=== PATIENT | male | born 1995 | race Caucasian/White ===

== ENCOUNTER → 2022-10-17 | Outpatient (CLI) | payer OTHER, SELFPAY ==
--- NOTE | 2022-10-17 14:30 | VDUE_ITS ---
Reason For Study: pain Right Proximal Left Proximal Right jugular vein is spontaneous, widely Left jugular vein is spontaneous, widely patent, phasic, with no intraluminal patent, phasic, with no intraluminal echogenicity noted. echogenicity noted. Right subclavian vein is spontaneous, widely Left subclavian vein is spontaneous, widely patent, phasic, with no intraluminal patent, phasic, with no intraluminal echogenicity noted. echogenicity noted. Right Lower Arm Left Arm Right radial vein is compressible. Left axillary vein is spontaneous, patent, Right ulnar vein is compressible. phasic, competent, compressible and Right Arm demonstrates augmentation. Right axillary vein is spontaneous, patent, Left brachial vein is compressible. phasic, competent, compressible and Left cephalic vein is compressible. demonstrates augmentation. Left basilic vein is compressible. Right brachial vein is compressible. Left Lower Arm Right cephalic vein is compressible. Left radial vein is compressible. Right basilic vein is compressible. Left ulnar vein is compressible. VL/Venous Duplex US - Gerardo Extrem Interpretation Summary Deep veins of the bilateral upper extremities are patent and compressible segme ntally. There is no evidence of deep vein thrombosis. Superficial veins of the bilateral upper extremities are patent and compressibl e segmentally. There is no evidence of superficial vein thrombosis Ordering Physician: Rica Crum Performed By: Rob Tijerina RVT ???
== END | disposition home or self-care (01) ==
PROVIDERS: Referring Provider Physician Assistant; Visit Provider Physician Assistant
DX: M79.603 Pain in arm, unspecified (principal); G54.0 Brachial plexus disorders
CPT/HCPCS: 93970

== ENCOUNTER → 2022-11-09 | Outpatient (CLI) | payer OTHER, SELFPAY ==
--- NOTE | 2022-11-09 14:06 | ART_ITS ---
Reason For Study: Thoracic Outlet Syndrome Procedure A bilateral upper extremity continuous wave Doppler with analog waveform analysis and segmental pressures. Left Segmental Pressures Left brachial= 133mmHg. Left radial= 174mmHg. Left ulnar= 167mmHg. Left digit = 153 mmHg. The left brachial waveforms are triphasic. The left radial waveforms are triphasic. The left ulnar waveforms are triphasic. Right Segmental Pressures Right brachial= 143mmHg. Right radial= 179mmHg. Right ulnar= 173mmHg. Right digit = 146 mmHg. The right brachial waveforms are triphasic. The right radial waveforms are triphasic. The right ulnar waveforms are triphasic. Indices The right wrist-brachial index is 1.25. The right digital-brachial index is 1.02. The left wrist- brachial index is 1.22. The left digital-brachial index is 1.07. VL/Upper Extremity Arterial Study Interpretation Summary Right wrist-brachial index 1.25, normal. PVR and digit waveforms normal at rest . Significantly diminished right upper extremity waveforms with arms in symptomat ic position. Left wrist-brachial index 1.22, normal. PVR and digit waveforms normal at rest. Significantly diminished left upper extremity waveforms with arms in symptomati c position. Ordering Physician: Rica Crum Referring Physician: N/A Performed By: Jack Aparicio RVT
== END | disposition home or self-care (01) ==
LOC: CVS 14:05
PROVIDERS: Referring Provider Physician Assistant; Visit Provider Physician Assistant
DX: G54.0 Brachial plexus disorders (principal)
CPT/HCPCS: 93923